=== PATIENT | male | born 1995 ===

== ENCOUNTER 2016-11-08 19:07 | Emergency (ER) ==
[2016-11-08] MEDS ORDERED: IBUPROFEN 600 MG TAB As Ordered ONE (19:25)
--- NOTE | 2016-11-08 20:04 | EDDOCDS ---
Nurse's Notes [facility] Name: Henri Bunn Age: 21 yrs Sex: Male : 1995 Arrival Date: 11/08/2016 Time: 19:07 Bed I10 / 23 Private MD: JUS Storm Diagnosis: Contusion of left hand Presentation: 11/08 19:09 Presenting complaint: Patient states: per pt left hand pain & left middle finger pain, tm5 pt was boxing tonight when he sustained injury, no obvious deformity noted. Adult Sepsis Screening: The patient does not have new or worsening altered mentation. Patient's respiratory rate is less than 22. Systolic blood pressure is greater than 100. Patient has a qSOFA score of 0- Negative Sepsis Screen. Suicide/Homicide risk assessment- the patient denies having any suicidal and/or homicidal ideations and does not present with any other emotional, behavioral or mental health complaints. Status: The patient is an active duty services advisor. Transition of care: patient was not received from another setting of care. 19:09 Acuity: CHALINO Level 4 tm5 19:09 Method Of Arrival: Walkin/Carried/Asstd tm5 Triage Assessment: 19:10 General: Appears in no apparent distress, Behavior is appropriate for age, cooperative. tm5 Pain: Location: left hand Pain currently is 7 out of 10 on a pain scale. Quality of pain is described as sharp, throbbing. Pt Declines HIV testing. Neurological: Level of Consciousness is awake, alert, Oriented to person, place, time. Respiratory: Airway is patent Respiratory effort is even, unlabored, Respiratory pattern is regular, symmetrical. Derm: Skin is pink, warm & dry. Musculoskeletal: Reports pain in left hand. Historical: - Allergies: no known allergies; - Home Meds: 1. none - PMHx: none; - PSHx: none; - Social history: Smoking status: Patient uses tobacco products, current every day smoker. No barriers to communication noted, The patient speaks fluent Austrian. - Family history: No immediate family members are acutely ill. - : The pt / caregiver states he / she is not on anticoagulants. Home medication list is obtained from the patient. - Exposure Risk Screening:: None identified. Screenin:12 Screening information is obtained from the patient. Fall risk: No risks identified. tm5 Assistance ADL's: requires no assistance with activities of daily living. Abuse/DV Screen: The patient / caregiver reports he/she is: not in a situation that causes fear, pain or injury. Nutritional screening: No deficits noted. Advance Directives: Currently, there is no health care proxy. There is no active DNR order. home support is adequate. Assessment: 19:29 General: Appears in no apparent distress, comfortable, Behavior is appropriate for age, nn1 cooperative. Pain: Location: dorsal aspect of proximal phalanx of left middle finger. Neurological: No deficits noted. Respiratory: No deficits noted. Derm: Skin is pink, warm & dry. Musculoskeletal: Circulation, motion, and sensation intact Capillary refill < 3 seconds Range of motion intact in all extremities. Patient able to make fist with left hand, sensation intact. Denies numbness or tingling. Musculoskeletal: No deformity noted Swelling absent. Vital Signs: 19:08 BP 126 / 72; Pulse 66; Resp 18; Temp 98.7; Pulse Ox 99% ; Weight 84.37 kg; Height 5 ft. elp 9 in. (175.26 cm); 20:01 BP 117 / 69; Pulse 65; Resp 18; Temp 96.8; Pulse Ox 98% ; ajs 19:08 Body Mass Index 27.47 (84.37 kg, 175.26 cm) [facility] Vitals: 19:08 Log In Time: November 08, 2016 at 19:[address]. [facility] ED Course: 19:07 Patient visited by Kanchan Morrison PCA. elp 19:07 Patient moved to Waiting elp 19:08 Emeterio [facility] is Private Physician. elp 19:09 Patient visited by Kanchan Morrison PCA. elp 19:10 Triage Initiated tm5 19:10 Patient moved to Pre RCE elp 19:12 [facility] ke 19:12 Patient visited by Larry Solano FNP. ke 19:12 Patient visited by Larry Solano FNP. ke 19:12 Patient moved to Triage 2 tm5 19:12 Patient moved to I10 / 23 lf1 19:35 Emeterio [facility] is Referral Physician. ke 20:02 Patient visited by Anjana Parish. ajs 20:02 The patient / caregiver is instructed regarding the plan of care and ED course. mv5 20:02 No IV's were initiated during this patient's visit. No procedures done that require mv5 assistance. Administered Medications: 19:29 Drug: Ibuprofen 600 mg [ibuprofen 600 mg tablet (1 tabs)] Route: PO; nn1 Order Results: There are currently no results for this order. Outcome: 19:36 Discharge ordered by Provider. ke 20:02 Discharge Assessment: Patient awake, alert and oriented x 3. No cognitive and/or mv5 functional deficits noted. Patient verbalized understanding of disposition instructions. patient administered narcotics - no. The following High Risk Discharge criteria are identified: None. Discharged to home. Condition: stable. Discharge instructions given to patient, Demonstrated understanding of Pt was receptive of discharge instructions/ teaching. Prescriptions given X 1. No special radiology studies were completed. Property sent home with patient. 20:03 Patient left the ED. mv5 Signatures: Larry Solano, SKIVER UPPERS OR LININGS SKIVER UPPERS OR LININGS Coleen AlvaradoRN RN lf1 Anjana Parish Erin, FINISHER SCREWDOWN FINISHER SCREWDOWN Coreen Charlton RN RN nn1 Faviola Kay,RAYA RN tm5 Jennifer Pena,RN RN mv5 JUDSOND
--- NOTE | 2016-11-08 20:04 | EDDOCDS ---
Physician Documentation [facility] Name: Henri Bunn Age: 21 yrs Sex: Male : 1995 Arrival Date: 11/08/2016 Time: 19:07 Bed I10 / 23 Private MD: JUS Storm Disposition: 11/08/16 19:36 Discharged to Home/Self Care. Impression: Contusion of left hand. - Condition is Stable. - Discharge Instructions: Hand Contusion. - Prescriptions for Ibuprofen 600 mg Oral Tablet - take 1 tablet by ORAL route every 6 hours As needed take with food; 30 tablet. - Medication Reconciliation, Local Pharmacy Hours form. - Follow up: JUS Storm; When: 4 - 5 days; Reason: Recheck today's complaints, Continuance of care. - Problem is new. - Symptoms are unchanged. - Notes: ice 20min an hour Historical: - Allergies: no known allergies; - Home Meds: 1. none - PMHx: none; - PSHx: none; - Social history: Smoking status: Patient uses tobacco products, current every day smoker. No barriers to communication noted, The patient speaks fluent Uzbek. - Family history: No immediate family members are acutely ill. - : The pt / caregiver states he / she is not on anticoagulants. Home medication list is obtained from the patient. - Exposure Risk Screening:: None identified. Vital Signs: 11/08 19:08 BP 126 / 72; Pulse 66; Resp 18; Temp 98.7; Pulse Ox 99% ; Weight 84.37 kg / 186 lbs; elp Height 5 ft. 9 in. (175.26 cm); 20:01 BP 117 / 69; Pulse 65; Resp 18; Temp 96.8; Pulse Ox 98% ; ajs 19:08 Body Mass Index 27.47 (84.37 kg, 175.26 cm) elp MDM: 19:20 Ibuprofen 600 mg PO once ordered. ke 19:20 Hand, Complete Ordered. EDMS Administered Medications: 19:29 Drug: Ibuprofen 600 mg [ibuprofen 600 mg tablet (1 tabs)] Route: PO; nn1 Signatures: Dispatcher [employer] EDMS Larry Solano FNP MANAGER OF NETWORK Faviola MelendezRN RN tm5 Jennifer Pena RN RN mv5 James Rushle RN nn1 JUDSOND
--- NOTE | 2016-11-08 20:52 | REP ---
LEFT HAND, COMPLETE: 11/08/2016. Clinical history: Trauma. Four views are provided. Distal radius and ulna are intact. Carpal bones and their joint spaces are unremarkable. Metacarpals, MCP, and phalanges intact. The IP joints were unremarkable. Minor swelling over the MCP joints, but no visible or displaced fracture, avulsion or erosion. No foreign body. Impression: 1. Negative for fracture, subluxation or focal bone lesion about the hand and wrist. No foreign body erosions or other acute bony finding. 2. Minor soft tissue swelling dorsal aspect of the MCP joints. Signed by Teodoro Rae MD 11/09/2016 01:13 P
--- NOTE | 2016-11-10 21:04 | EDDOCDS ---
Physician Documentation [facility] Name: Henri Bunn Age: 21 yrs Sex: Male : 1995 Arrival Date: 11/08/2016 Time: 19:07 Bed I10 / 23 Private MD: JUS Storm Disposition: 11/08/16 19:36 Discharged to Home/Self Care. Impression: Contusion of left hand. - Condition is Stable. - Discharge Instructions: Hand Contusion. - Prescriptions for Ibuprofen 600 mg Oral Tablet - take 1 tablet by ORAL route every 6 hours As needed take with food; 30 tablet. - Medication Reconciliation, Local Pharmacy Hours form. - Follow up: JUS Storm; When: 4 - 5 days; Reason: Recheck today's complaints, Continuance of care. - Problem is new. - Symptoms are unchanged. - Notes: ice 20min an hour Historical: - Allergies: no known allergies; - Home Meds: 1. none - PMHx: none; - PSHx: none; - Social history: Smoking status: Patient uses tobacco products, current every day smoker. No barriers to communication noted, The patient speaks fluent Icelandic. - Family history: No immediate family members are acutely ill. - : The pt / caregiver states he / she is not on anticoagulants. Home medication list is obtained from the patient. - Exposure Risk Screening:: None identified. Vital Signs: 11/08 19:08 BP 126 / 72; Pulse 66; Resp 18; Temp 98.7; Pulse Ox 99% ; Weight 84.37 kg / 186 lbs; elp Height 5 ft. 9 in. (175.26 cm); 20:01 BP 117 / 69; Pulse 65; Resp 18; Temp 96.8; Pulse Ox 98% ; ajs 19:08 Body Mass Index 27.47 (84.37 kg, 175.26 cm) elp MDM: 19:20 Ibuprofen 600 mg PO once ordered. ke 19:20 Hand, Complete Ordered. EDMS 11/09 17:53 T-Sheet-- Draft Copy was scanned into [employer]utor and attached to record. klr Administered Medications: 11/08 19:29 Drug: Ibuprofen 600 mg [ibuprofen 600 mg tablet (1 tabs)] Route: PO; nn1 Signatures: Dispatcher [employer] EDMS Larry Solano, MAINTENANCE AND REPAIR WORKER Kalina Delgado Tonya,RN RN tm5 Jennifer Pena,RN RN mv5 Coreen Rush RN nn1 The chart was reviewed and I authenticate all verbal orders and agree with the evaluation and treatment provided.Attachments: 11/09 17:53 T-Sheet-- Draft Copy klr Chart Complete MTDD
--- NOTE | 2016-11-10 21:04 | EDDOCDS ---
Nurse's Notes [facility] Name: Henri Bunn Age: 21 yrs Sex: Male : 1995 Arrival Date: 11/08/2016 Time: 19:07 Bed I10 / 23 Private MD: JUS Storm Diagnosis: Contusion of left hand Presentation: 11/08 19:09 Presenting complaint: Patient states: per pt left hand pain & left middle finger pain, tm5 pt was boxing tonight when he sustained injury, no obvious deformity noted. Adult Sepsis Screening: The patient does not have new or worsening altered mentation. Patient's respiratory rate is less than 22. Systolic blood pressure is greater than 100. Patient has a qSOFA score of 0- Negative Sepsis Screen. Suicide/Homicide risk assessment- the patient denies having any suicidal and/or homicidal ideations and does not present with any other emotional, behavioral or mental health complaints. Status: The patient is an active duty service promoter salesperson. Transition of care: patient was not received from another setting of care. 19:09 Acuity: CHALINO Level 4 tm5 19:09 Method Of Arrival: Walkin/Carried/Asstd tm5 Triage Assessment: 19:10 General: Appears in no apparent distress, Behavior is appropriate for age, cooperative. tm5 Pain: Location: left hand Pain currently is 7 out of 10 on a pain scale. Quality of pain is described as sharp, throbbing. Pt Declines HIV testing. Neurological: Level of Consciousness is awake, alert, Oriented to person, place, time. Respiratory: Airway is patent Respiratory effort is even, unlabored, Respiratory pattern is regular, symmetrical. Derm: Skin is pink, warm & dry. Musculoskeletal: Reports pain in left hand. Historical: - Allergies: no known allergies; - Home Meds: 1. none - PMHx: none; - PSHx: none; - Social history: Smoking status: Patient uses tobacco products, current every day smoker. No barriers to communication noted, The patient speaks fluent Swiss. - Family history: No immediate family members are acutely ill. - : The pt / caregiver states he / she is not on anticoagulants. Home medication list is obtained from the patient. - Exposure Risk Screening:: None identified. Screenin:12 Screening information is obtained from the patient. Fall risk: No risks identified. tm5 Assistance ADL's: requires no assistance with activities of daily living. Abuse/DV Screen: The patient / caregiver reports he/she is: not in a situation that causes fear, pain or injury. Nutritional screening: No deficits noted. Advance Directives: Currently, there is no health care proxy. There is no active DNR order. home support is adequate. Assessment: 19:29 General: Appears in no apparent distress, comfortable, Behavior is appropriate for age, nn1 cooperative. Pain: Location: dorsal aspect of proximal phalanx of left middle finger. Neurological: No deficits noted. Respiratory: No deficits noted. Derm: Skin is pink, warm & dry. Musculoskeletal: Circulation, motion, and sensation intact Capillary refill < 3 seconds Range of motion intact in all extremities. Patient able to make fist with left hand, sensation intact. Denies numbness or tingling. Musculoskeletal: No deformity noted Swelling absent. Vital Signs: 19:08 BP 126 / 72; Pulse 66; Resp 18; Temp 98.7; Pulse Ox 99% ; Weight 84.37 kg; Height 5 ft. elp 9 in. (175.26 cm); 20:01 BP 117 / 69; Pulse 65; Resp 18; Temp 96.8; Pulse Ox 98% ; ajs 19:08 Body Mass Index 27.47 (84.37 kg, 175.26 cm) [facility] Vitals: 19:08 Log In Time: November 08, 2016 at 19:07. [facility] ED Course: 19:07 Patient visited by Kanchan Morrison PCA. elp 19:07 Patient moved to Waiting elp 19:08 Emeterio [facility] is Private Physician. elp 19:09 Patient visited by Kanchan Morrison PCA. elp 19:10 Triage Initiated tm5 19:10 Patient moved to Pre RCE elp 19:12 [facility] ke 19:12 Patient visited by Larry Solano FNP. ke 19:12 Patient visited by Larry Solano FNP. ke 19:12 Patient moved to Triage 2 tm5 19:12 Patient moved to I10 / 23 lf1 19:35 Emeterio [facility] is Referral Physician. ke 20:02 Patient visited by Anjana Parish. ajs 20:02 The patient / caregiver is instructed regarding the plan of care and ED course. mv5 20:02 No IV's were initiated during this patient's visit. No procedures done that require mv5 assistance. 21:17 Hand, Complete Returned. [facility] 11/09 17:53 T-Sheet-- Draft Copy was scanned into [employer] and attached to record. klr Administered Medications: 11/08 19:29 Drug: Ibuprofen 600 mg [ibuprofen 600 mg tablet (1 tabs)] Route: PO; nn1 Order Results: Radiology Order: Hand, Complete Test: Hand, Complete REASON FOR EXAMINATION: Trauma; LEFT HAND, COMPLETE: 11/08/2016.; ; Clinical history: Trauma.; ; Four views are provided.; ; Distal radius and ulna are intact. Carpal bones and their joint spaces are; unremarkable. Metacarpals, MCP, and phalanges intact. The IP joints were; unremarkable. Minor swelling over the MCP joints, but no visible or displaced; fracture, avulsion or erosion. No foreign body.; ; Impression:; ; 1. Negative for fracture, subluxation or focal bone lesion about the hand and; wrist. No foreign body erosions or other acute bony finding.; ; 2. Minor soft tissue swelling dorsal aspect of the MCP joints.; ; ; Signed by; Teodoro Rae MD 11/09/2016 01:13 P; Outcome: 19:36 Discharge ordered by Provider. ke 20:02 Discharge Assessment: Patient awake, alert and oriented x 3. No cognitive and/or mv5 functional deficits noted. Patient verbalized understanding of disposition instructions. patient administered narcotics - no. The following High Risk Discharge criteria are identified: None. Discharged to home. Condition: stable. Discharge instructions given to patient, Demonstrated understanding of Pt was receptive of discharge instructions/ teaching. Prescriptions given X 1. No special radiology studies were completed. Property sent home with patient. 20:03 Patient left the ED. mv5 Signatures: Dispatcher [facility] Larry Solano, FRACTIONATION SUPERVISOR FRACTIONATION SUPERVISOR Coleen AlvaradoRN RN lf1 Anjana Parish Erin, SAS PROGRAMMER REMOTE SAS PROGRAMMER REMOTE Coreen CharltonRN RN nn1 Kalina Aparicio TonyaRN RN tm5 Jennifer PenaRN RN mv5 Chart Complete MTDD
--- NOTE | 2016-11-10 21:04 | EDDOCDS ---
Physician Documentation [facility] Name: Henri Bunn Age: 21 yrs Sex: Male : 1995 Arrival Date: 11/08/2016 Time: 19:07 Bed I10 / 23 Private MD: JUS Storm Disposition: 11/08/16 19:36 Discharged to Home/Self Care. Impression: Contusion of left hand. - Condition is Stable. - Discharge Instructions: Hand Contusion. - Prescriptions for Ibuprofen 600 mg Oral Tablet - take 1 tablet by ORAL route every 6 hours As needed take with food; 30 tablet. - Medication Reconciliation, Local Pharmacy Hours form. - Follow up: JUS Storm; When: 4 - 5 days; Reason: Recheck today's complaints, Continuance of care. - Problem is new. - Symptoms are unchanged. - Notes: ice 20min an hour Historical: - Allergies: no known allergies; - Home Meds: 1. none - PMHx: none; - PSHx: none; - Social history: Smoking status: Patient uses tobacco products, current every day smoker. No barriers to communication noted, The patient speaks fluent Indonesian. - Family history: No immediate family members are acutely ill. - : The pt / caregiver states he / she is not on anticoagulants. Home medication list is obtained from the patient. - Exposure Risk Screening:: None identified. Vital Signs: 11/08 19:08 BP 126 / 72; Pulse 66; Resp 18; Temp 98.7; Pulse Ox 99% ; Weight 84.37 kg / 186 lbs; elp Height 5 ft. 9 in. (175.26 cm); 20:01 BP 117 / 69; Pulse 65; Resp 18; Temp 96.8; Pulse Ox 98% ; ajs 19:08 Body Mass Index 27.47 (84.37 kg, 175.26 cm) elp MDM: 19:20 Ibuprofen 600 mg PO once ordered. ke 19:20 Hand, Complete Ordered. EDMS 11/09 17:53 T-Sheet-- Draft Copy was scanned into [employer] and attached to record. klr Administered Medications: 11/08 19:29 Drug: Ibuprofen 600 mg [ibuprofen 600 mg tablet (1 tabs)] Route: PO; nn1 Signatures: Dispatcher [employer] EDMS Larry Solano, EDI DEVELOPER Kalina Delgado Tonya,RN RN tm5 Jennifer Pena,RN RN mv5 Coreen Rush RN nn1 The chart was reviewed and I authenticate all verbal orders and agree with the evaluation and treatment provided.Attachments: 11/09 17:53 T-Sheet-- Draft Copy klr Chart Complete MTDD
== END 2016-11-08 20:03 | disposition home or self-care (01) ==
LOC: M ED 19:07
DX: S60.222A Contusion of left hand, initial encounter (principal); X58.XXXA Exposure to other specified factors, initial encounter; Y92.89 Other specified places as the place of occurrence of the external cause; Y93.71 Activity, boxing; Y99.8 Other external cause status; F17.210 Nicotine dependence, cigarettes, uncomplicated